=== PATIENT | female | born 1950 | race Hispanic/Latino ===

== ENCOUNTER 2018-01-26 20:46 | Emergency (ER) | payer MEDICARE, BC ==
[2018-01-26 20:47] VITALS: BMI 33.3
[2018-01-26 21:03] VITALS: RESP 18; TEMP 98.2
--- NOTE | 2018-01-26 21:27 | ED PDOC ---
Arrival/HPI - General Historian: Patient - History of Present Illness Narrative History of Present Illness (Text): 01/26/18 21:28 67 y o female complaining of shortness of breath that has been progressively worsening for the past 2 months. Pt states she decided to come today to the ER to get evaluated because she was having progressive dyspnea on exertion and non- productive, dry cough. Denies hx of recent sick contacts. Recently finished course of Amoxicillin tid 1.5 weeks prior for R tooth abscess. States she gets monthly injections of Belatacept 450 mg from her kidney specialist (Dr. Hanna, [facility]). Denies headache, dizziness, fever, chest pain, n/v/d/c, urinary complaints, or other symptoms. Past medical history: S/p kidney transplant 2 years prior, hyperlipidemia PSurgHx: kidney transplant Allergies: NKDA Meds: Prednisone 5 mg daily, Folic acid daily, Atorvastatin 40 mg q d, Mycophenolic acid 180 mg (2 tabs in am, 2 tabs in pm); Belatacept monthly Fam hx: denies Soc hx: denies smoking, EtOH, or illicit drug use PMD: Dr. Saenz <Naeem Capone - Last Filed: 01/27/18 01:31> <Kevin Weber - Last Filed: 01/29/18 11:36> - General Chief Complaint: Shortness Of Breath Past Medical History - Infectious Disease Hx of Infectious Diseases: None - Reproductive Menopause: Yes - Cardiac Hx Hypertension: Yes - Pulmonary Hx Chronic Obstructive Pulmonary Disease (COPD): No - Neurological HX Cerebrovascular Accident: No - Renal Hx Renal Failure: Yes - Hematological/Oncological Hx Blood Disorders: No Hx Cancer: No Hx Cirrhosis: No Hx Hepatitis A: No Hx Hepatitis B: No Hx Hepatitis C: No Hx Metastasis: No - Musculoskeletal/Rheumatological Hx Musculoskeletal Disorders: No Hx Falls: No - Gastrointestinal Hx Gastrointestinal Disorders: No - Psychiatric Hx Psychophysiologic Disorder: No Hx Anxiety: No Hx Bipolar Disorder: No Hx Depression: No Hx Emotional Abuse: No Hx Hallucinations: No Hx Panic Disorder: No Hx Post Traumatic Stress Disorder: No Hx Psychosis: No Hx Physical Abuse: No Hx Schizophrenia: No Hx Sexual Abuse: No Hx Substance Use: No - Surgical History Other/Comment: Kidney Transplant 2 years ago - Anesthesia Hx Anesthesia: Yes Hx Anesthesia Reactions: No Hx Malignant Hyperthermia: No - Suicidal Assessment Feels Threatened In Home Enviroment: No <Naeem Capone - Last Filed: 01/27/18 01:31> Family/Social History Family/Social History: No Known Family HX Smoking Status: Never Smoked Hx Alcohol Use: No Hx Substance Use: No Hx Substance Use Treatment: No <Naeem Capone - Last Filed: 01/27/18 01:31> Allergies/Home Meds <Naeem Capone - Last Filed: 01/27/18 01:31> <Kevin Weber - Last Filed: 01/29/18 11:36> Allergies/Adverse Reactions: Allergies No Known Allergies Allergy (Verified 01/26/18 21:03) Home Medications: Home Meds Medication Instructions Recorded Confirmed RX: Atorvastatin [Lipitor] 20 mg PO DAILY 02/18/16 01/26/18 RX: Famotidine [Pepcid] 20 mg PO BID 02/18/16 01/26/18 RX: Folic Acid 1 mg PO DAILY 02/18/16 01/26/18 RX: Multivitamin [Multivitamins] 1 each PO DAILY 02/18/16 01/26/18 RX: Searchlight-3S/Dha/Epa/Fish Oil 1 each PO TID 02/18/16 01/26/18 [Searchlight-3 Fish Oil 1,200 mg Sfgl] RX: Prednisone [Scott] 5 mg PO DAILY 02/18/16 01/26/18 RX: Mycophenolate Sodium 1 tab PO BID 01/26/18 01/26/18 [Mycophenolic Acid] Review of Systems - Review of Systems Constitutional: Fatigue. absent: Weight Change, Fevers, Night Sweats Respiratory: SOB, Cough. absent: Sputum, Wheezing Cardiovascular: BHATTI. absent: Chest Pain, Palpitations, Edema, Calf Pain, Syncope Gastrointestinal: absent: Abdominal Pain, Stool Changes, Constipation, Diarrhea, Nausea, Vomiting Genitourinary Female: absent: Dysuria, Frequency Neurological: absent: Headache, Dizziness <Naeem Capone - Last Filed: 01/27/18 01:31> Physical Exam Vital Signs Temp Pulse Resp BP Pulse Ox 01/26/18 20:58 98.2 F 83 18 131/68 98 Temperature: Afebrile Blood Pressure: Normal Pulse: Regular Appearance: Positive for: Well-Appearing, Non-Toxic, Uncomfortable Mental Status: Positive for: Alert and Oriented X 3 - Systems Exam Head: Present: Atraumatic, Normocephalic Pupils: Present: PERRL Extroacular Muscles: Present: EOMI Conjunctiva: Present: Normal Mouth: Present: Moist Mucous Membranes Neck: Present: Normal Range of Motion Respiratory/Chest: Present: Clear to Auscultation, Good Air Exchange. No: Accessory Muscle Use, Wheezes, Rales, Rhonchi, Tender to Palpation Cardiovascular: Present: Regular Rate and Rhythm, Normal S1, S2. No: Murmurs, Rub, Gallop Abdomen: Present: Normal Bowel Sounds. No: Tenderness, Distention, Mass/Organomegaly Back: Present: Normal Inspection. No: Paraspinal Tenderness Upper Extremity: Present: Normal Inspection, Normal ROM, NORMAL PULSES. No: Cyanosis, Edema Lower Extremity: Present: Normal Inspection, NORMAL PULSES, Normal ROM. No: Edema, Cyanosis Neurological: Present: GCS=15, CN II-XII Intact, Speech Normal, Motor Func Grossly Intact Skin: Present: Warm, Dry, Normal Color. No: Rashes Psychiatric: Present: Alert, Oriented x 3 <Naeem Capone - Last Filed: 01/27/18 01:31> Vital Signs Temp Pulse Resp BP Pulse Ox 01/26/18 20:58 98.2 F 83 18 131/68 98 <Kevin Weber - Last Filed: 01/29/18 11:36> Medical Decision Making ED Course and Treatment: 01/26/18 22:05 CBC, CMP, rapid flu, Chest X-ray ordered. Will continue to monitor. 01/27/18 01:19 Chest X-ray reviewed, no consolidations noted. Labs reviewed. Rapid flu neg. Conveyed results to pt; Pt states that she is feeling a little better but still has productive cough and dyspnea. Will send pt home with Crystal Turner and Angelthromax for total 3 days. Instructed to follow with her PMD Dr. Saenz within the next several days after discharge. Instructed to call her PMD or report back to her nearest emergency dept if symptoms worsen. All questions and concerns addressed with pt and she is agreeable to plan. Re-evaluation Time: 01:19 Reassessment Condition: Re-examined, Improving,but remains with symptoms - RAD Interpretation Radiology Orders: 01/26/18 21:25 CHEST TWO VIEWS (PA/LAT) [RAD] Stat - EKG Interpretation EKG Interpretation (Text): 01/26/18 22:05 EKG NSR 74 bpm, no acute ST-T wave changes noted. Interpreted by ED Physician: Yes Type: 12 lead EKG <Naeem Capone - Last Filed: 01/27/18 01:31> ED Course and Treatment: Impression: Pt seen and evaluated with ophthalmic medical technologist. Aware and agree with HPI, clinical findings, plan, and management. Pt, whose past medical history includes kidney transplant 2 years ago and hyperlipidemia, presented for shortness of breath and dry cough. Plan: -- Labs -- Rapid influenza -- CXR -- Reassess and disposition - Lab Interpretations Lab Results: 01/26/18 21:00 01/26/18 21:00 Lab Results 01/26/18 21:00: Sodium 141, Potassium 4.4, Chloride 110 H, Carbon Dioxide 20 L, Anion Gap 15, BUN 40 H, Creatinine 1.3 H, Est GFR ( Amer) 49, Est GFR (Non-Af Amer) 41, Random Glucose 98, Calcium 10.3, Total Bilirubin 0.5, AST 26, ALT 37, Alkaline Phosphatase 87, Total Protein 7.3, Albumin 4.2, Globulin 3.0, Albumin/Globulin Ratio 1.4 01/26/18 21:00: WBC 4.9, RBC 3.65, Hgb 10.8 L, Hct 34.7 L, MCV 95.1, MCH 29.6, MCHC 31.1, RDW 14.4, Plt Count 135, MPV 11.9 H, Gran % 67.8, Lymph % (Auto) 22.3, [place] % (Auto) 8.7 H, Eos % (Auto) 1.2 L, Baso % (Auto) 0.0, Gran # 3.34, Lymph # (Auto) 1.1 L, [place] # (Auto) 0.4, Eos # (Auto) 0.1, Baso # (Auto) 0.00 - RAD Interpretation Radiology Orders: 01/26/18 21:25 CHEST TWO VIEWS (PA/LAT) [RAD] Stat <Kevin Weber - Last Filed: 01/29/18 11:36> - PA / ACID STRENGTH INSPECTOR / Resident Statement / has reviewed & agrees with the documentation as recorded. / has examined the patient and agrees with the treatment plan. <GusKevin - Last Filed: 01/29/18 11:36> Disposition/Present on Arrival - Present on Arrival Any Indicators Present on Arrival: No History of DVT/PE: No History of Uncontrolled Diabetes: No Urinary Catheter: No History of Decub. Ulcer: No History Surgical Site Infection Following: None - Disposition Have Diagnosis and Disposition been Completed?: Yes Disposition Time: :23 <Naeem Capone - Last Filed: 01/27/18 01:31> <GusKevin - Last Filed: 01/29/18 11:36> - Disposition Diagnosis: Acute bronchitis Disposition: HOME/ ROUTINE Condition: GOOD Discharge Instructions (ExitCare): Acute Bronchitis, Adult (DC) Print Language: NICARAGU[place] Additional Instructions: Please take antibiotic and Tessalon Perles as prescribed. Please follow with your primary care provider (Dr. Saenz) within 1 week of discharge. Should symptoms recur or worsen, please call your primary care provider or report to your nearest emergency department. Prescriptions: Azithromycin [Zithromax] 250 mg PO DAILY #3 tab Benzonatate [Tessalon Perles] 100 mg PO TID #15 sgl Referrals: Toya Saenz MD [Family Provider] - Follow up with primary Forms: [employer] (Maltese)
[2018-01-26 21:58] LABS: EOS # 0.1 (0.0-0.7); EOS % 1.2 % (1.5-5.0); GRAN # 3.34 (1.4-6.5); GRAN % 67.8 % (50.0-68.0); HEMOGLOBIN 10.8 g/dL (12.0-16.0); LYMPH # 1.1 (1.2-3.4); LYMPH % 22.3 % (22.0-35.0); MEAN CELL VOLUME 95.1 fl (80.0-105.0); MEAN CORPUSCULAR HEMOGLOBIN 29.6 pg (25.0-35.0); MEAN CORPUSCULAR HGB CONC 31.1 g/dl (31.0-37.0); MEAN PLATELET VOLUME 11.9 fl (7.0-11.0); MONO # 0.4 (0.1-0.6); MONO % 8.7 % (1.0-6.0); RBC 3.65 10^6/uL (3.5-6.1); RED CELL DISTRIBUTION WIDTH 14.4 % (11.5-14.5); WHITE BLOOD COUNT 4.9 10^3/uL (4.5-11.0)
[2018-01-26 22:15] LABS: ALB/GLOB RATIO 1.4 (1.1-1.8); ALBUMIN 4.2 g/dL (3.0-4.8); CALCIUM 10.3 mg/dL (8.4-10.5)
[2018-01-27 02:03] VITALS: BP 117/65; PULSE 62; O2SAT 98
--- NOTE | 2018-01-27 10:48 | RAD ---
Date of service: 01/27/2018 HISTORY: shortness of breath, dry cough COMPARISON: 02/18/2016 TECHNIQUE: Chest PA and lateral FINDINGS: LUNGS: No active pulmonary disease. PLEURA: No significant pleural effusion identified. No pneumothorax apparent. CARDIOVASCULAR: Atherosclerotic calcifications identified primarily aortic arch. Normal cardiac size. No pulmonary vascular congestion. OSSEOUS STRUCTURES: No significant abnormalities. VISUALIZED UPPER ABDOMEN: Normal. OTHER FINDINGS: None. IMPRESSION: No active disease. No significant interval change compared to the prior examination(s).
--- NOTE | 2018-01-27 13:41 | CARD ---
APPROVED REPORT Date of service: 01/26/2018 EKG Measurement Heart [id number] <Conclusion> Normal sinus rhythm RBBB, new PRWP
== END 2018-01-27 02:04 | disposition home or self-care (01) ==
LOC: ED 20:46
DX: J20.9 Acute bronchitis, unspecified (principal); I10 Essential (primary) hypertension